=== PATIENT | female | born 1970 | race Caucasian/White ===

== ENCOUNTER → 2016-12-12 | Outpatient (CLI) | payer OTHER | LOC: FIMAGING 13:35 | DX: Z12.31 Encounter for screening mammogram for malignant neoplasm of breast (principal) | CPT/HCPCS: G0202 ==

== ENCOUNTER 2018-01-21 15:59 | Inpatient (IN) | payer OTHER ==
--- NOTE | 2018-01-21 16:12 | EDPHY ---
H & P Time Seen by Provider: 01/21/18 16:10 HPI/ROS: Chief complaint. Difficulty breathing HPI. Patient is 47-year-old female here with shortness of breath. She traveled to [facility] last week on returning on Friday. On Friday she started developed tingling and swelling to her lips in her ears were itching. She then developed some wheezing and hives. She saw her PCP yesterday and was started on prednisone and Claritin and albuterol inhaler as well as Zyrtec. She was not feeling any better and last night developed fever and shortness of breath and so was recheck by the PCP today. Her oximeter at the PCP office was 87%. After a albuterol nebulizer treatment she got up to 91% . Patient has tightness in her throat and feels that is closing. She has an abnormal voice. Height seemed to come and go. She short of breath. 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 She does have a history of pneumonia. There is a family history of autoimmune disease. She has no unusual leg pain or swelling. She has chest pressure. No abdominal pain or vomiting or diarrhea ROS 10 systems were reviewed and negative with the exception of the elements mentioned in the history of present illness Past Medical/Surgical History: Thyroidectomy, hypothyroid, melanoma Social History: , nonsmoker, no alcohol Smoking Status: Never smoked Physical Exam: Alert well-developed female moderate distress vital signs significant for O2 saturation 91% on room air General Appearance: Eyes: Pupils equal and round no pallor or injection. ENT, pharynx without injection. Voice is quite hoarse. However no inspiratory stridor. Swallowing secretions Respiratory: Inspiratory expiratory rhonchi. No retractions Cardiovascular: Regular rate and rhythm. Gastrointestinal: Abdomen is soft and nontender, no masses, bowel sounds normal. Neurological: Awake and alert, sensory and motor exams grossly normal. Skin: Warm and dry, no rashes. Musculoskeletal: Neck is supple nontender. Extremities symmetrical, full range of motion. Psychiatric: Patient is oriented X 3, there is no agitation. Constitutional: Initial Vital Signs Temperature (C) 37.4 C 01/21/18 16:03 Heart Rate 97 01/21/18 16:03 Respiratory Rate 18 01/21/18 16:03 Blood Pressure 148/88 H 01/21/18 16:03 O2 Sat (%) 91 L 01/21/18 16:03 O2 Delivery Mode Nasal Cannula O2 (L/minute) 2 Allergies/Adverse Reactions: aspirin Allergy (Verified 01/21/18 16:03) latex Allergy (Verified 01/21/18 16:02) Home Medications: Medication Instructions Recorded Estrogens,Conjugated [Premarin 1.25 mg PO DAILY 01/21/18 0.625 MG (*)] Levothyroxine [Synthroid 200 mcg 200 mcg PO DAILY06 01/21/18 (*)] Loratadine [Claritin 10 mg] 10 mg PO DAILY 01/21/18 Medical Decision Making - Diagnostics EKG Interpretation: EKG interpreted by me shows normal sinus rhythm. Normal intervals and axis. QRS is normal. There is no significant ST elevation or depression. There is no arrhythmia. Heart rate is 87 Imaging Results: Imaging Impressions Chest X-Ray 01/21/18 16:34 Impression: No pneumonia or pulmonary edema. Soft Tissue Neck X-Ray 01/21/18 16:34 Impression: Cervical soft tissues negative for acute abnormality.. Query mild lymphoid enlargement. Chest/Thorax CTA 01/21/18 17:16 Impression: 1. Negative for pulmonary embolic disease. 2. See above report for additional findings. CT Scan of the Neck, With Contrast Clinical Indications: Neck pain; evaluate for abscess. Technique: During machine power IV injection of 85 mL of Isovue-370, multidetector helical CT imaging was performed from the skull base to the upper thoracic inlet. Dose reduction techniques were utilized. This contrast dose was utilized for evaluation of the neck and chest. Findings: No pathologic adenopathy and no masses are found. No evidence of abscess or neoplasm. There is no evidence for airway compression. The musculature is symmetric. Parapharyngeal soft tissues are unremarkable. The parotid and submandibular glands are normal. Degenerative changes are noted in the cervical spine. Impression: 1. CT of the cervical spine negative for abscess. 2. See above report for additional findings. Results called and discussed with Nam Nathan M.D., on January 21, [address] 01/21/18 17:41 Impression: 1. Negative for pulmonary embolic disease. 2. See above report for additional findings. CT Scan of the Neck, With Contrast Clinical Indications: Neck pain; evaluate for abscess. Technique: During machine power IV injection of 85 mL of Isovue-370, multidetector helical CT imaging was performed from the skull base to the upper thoracic inlet. Dose reduction techniques were utilized. This contrast dose was utilized for evaluation of the neck and chest. Findings: No pathologic adenopathy and no masses are found. No evidence of abscess or neoplasm. There is no evidence for airway compression. The musculature is symmetric. Parapharyngeal soft tissues are unremarkable. The parotid and submandibular glands are normal. Degenerative changes are noted in the cervical spine. Impression: 1. CT of the cervical spine negative for abscess. 2. See above report for additional findings. Results called and discussed with Nam Nathan M.D., on January 21, 2018 at 1809. Chest x-ray interpreted by me shows no obvious pneumonia. Soft tissue neck appears to show normal epiglottis CT chest and CT neck with IV contrast showed no PE and no abscess or airway compromise Procedures: IV normal saline, monitor. Supplemental oxygen Sepsis workup. Lactate is positive. Patient given 30 milliliters/kilogram fluid bolus. D-dimer is elevated. ED Course/Re-evaluation: I discussed laboratory and imaging studies with the patient. I have recommended CT scan patient's chest for elevated D-dimer. She expresses understanding and agreement I consulted and discussed the case with Dr. Arthur for ENT who sees the patient in the ED and scopes the patient I consulted and discussed the case with Dr. Salamanca, hospitalist, who agrees to the admission and sees the patient in the ED Differential Diagnosis: I have considered epiglottitis, allergic reaction, pneumonia, PE, acute coronary syndrome. Patient had elevated lactate and I considered sepsis. Patient has an elevated D-dimer with recent travel. - Data Points Laboratory Results: Laboratory Results 01/21/18 16:55 01/21/18 16:44 01/21/18 01/21/18 01/21/18 16:56 16:55 16:55 WBC RBC Hgb Hct MCV MCH MCHC RDW Plt Count MPV Neut % (Auto) Lymph % (Auto) Winn % (Auto) Eos % (Auto) Baso % (Auto) Nucleat RBC Rel Count Absolute Neuts (auto) Absolute Lymphs (auto) Absolute Monos (auto) Absolute Eos (auto) Absolute Basos (auto) Absolute Nucleated RBC Immature Gran % Immature Gran # ESR PT INR APTT D-Dimer VBG Lactic Acid Sodium Potassium Chloride Carbon Dioxide Anion Gap BUN Creatinine Estimated GFR Glucose Calcium Total Bilirubin Creatine Kinase 87 IU/L IU/L (0-156) POC Troponin I 0.00 ng/mL ng/mL (0.00-0.08) C-Reactive Protein 25.4 mg/L H mg/L (<10.0) NT-Pro-B Natriuret Pep TSH < 0.015 uIU/mL L uIU/mL (0.465-4.680) Rheum Factor Semi-Quant < 8.6 IU/L IU/L (<12.0) SHADIA Screen Pending 01/21/18 01/21/18 01/21/18 16:55 16:44 16:44 WBC RBC Hgb Hct 40.1 % % (38.0-47.0) MCV MCH MCHC RDW Plt Count MPV Neut % (Auto) Lymph % (Auto) Winn % (Auto) Eos % (Auto) Baso % (Auto) Nucleat RBC Rel Count Absolute Neuts (auto) Absolute Lymphs (auto) Absolute Monos (auto) Absolute Eos (auto) Absolute Basos (auto) Absolute Nucleated RBC Immature Gran % Immature Gran # ESR 27 MM/HR H MM/HR (0-20) PT 13.1 SEC SEC (12.0-15.0) INR 0.97 (0.83-1.16) APTT 25.9 SEC SEC (23.0-38.0) D-Dimer 0.71 ug/mLFEU H ug/mLFEU (0.00-0.50) VBG Lactic Acid Sodium 140 mEq/L mEq/L (135-145) Potassium 3.6 mEq/L mEq/L (3.3-5.0) Chloride 106 mEq/L mEq/L (97-110) Carbon Dioxide 23 mEq/l mEq/l (22-31) Anion Gap 11 mEq/L mEq/L (6-14) BUN 21 mg/dL mg/dL (7-23) Creatinine 0.6 mg/dL mg/dL (0.6-1.0) Estimated GFR > 60 Glucose 133 mg/dL H mg/dL (70-100) Calcium 8.6 mg/dL mg/dL (8.5-10.4) Total Bilirubin 0.2 mg/dL mg/dL (0.1-1.4) Creatine Kinase POC Troponin I C-Reactive Protein NT-Pro-B Natriuret Pep 56 pg/mL pg/mL (0-125) TSH Rheum Factor Semi-Quant SHADIA Screen 01/21/18 01/21/18 16:44 16:41 WBC 9.75 10^3/uL H 10^3/uL (3.80-9.50) RBC 4.42 10^6/uL 10^6/uL (4.18-5.33) Hgb 13.8 g/dL g/dL (12.6-16.3) Hct 40.1 % % (38.0-47.0) MCV 90.7 fL fL (81.5-99.8) MCH 31.2 pg pg (27.9-34.1) MCHC 34.4 g/dL g/dL (32.4-36.7) RDW 12.2 % % (11.5-15.2) Plt Count 344 10^3/uL 10^3/uL (150-400) MPV 9.7 fL fL (8.7-11.7) Neut % (Auto) 90.8 % H % (39.3-74.2) Lymph % (Auto) 7.6 % L % (15.0-45.0) Winn % (Auto) 1.0 % L % (4.5-13.0) Eos % (Auto) 0.1 % L % (0.6-7.6) Baso % (Auto) 0.3 % % (0.3-1.7) Nucleat RBC Rel Count 0.0 % % (0.0-0.2) Absolute Neuts (auto) 8.85 10^3/uL H 10^3/uL (1.70-6.50) Absolute Lymphs (auto) 0.74 10^3/uL L 10^3/uL (1.00-3.00) Absolute Monos (auto) 0.10 10^3/uL L 10^3/uL (0.30-0.80) Absolute Eos (auto) 0.01 10^3/uL L 10^3/uL (0.03-0.40) Absolute Basos (auto) 0.03 10^3/uL 10^3/uL (0.02-0.10) Absolute Nucleated RBC 0.00 10^3/uL 10^3/uL (0-0.01) Immature Gran % 0.2 % % (0.0-1.1) Immature Gran # 0.02 10^3/uL 10^3/uL (0.00-0.10) ESR PT INR APTT D-Dimer VBG Lactic Acid 2.3 mmol/L H mmol/L (0.7-2.1) Sodium Potassium Chloride Carbon Dioxide Anion Gap BUN Creatinine Estimated GFR Glucose Calcium Total Bilirubin Creatine Kinase POC Troponin I C-Reactive Protein NT-Pro-B Natriuret Pep TSH Rheum Factor Semi-Quant SHADIA Screen Medications Given: Discontinued Medications Dexamethasone (Decadron Injection) 10 mg IVP EDNOW ONE Stop: 01/21/18 17:43 Last Admin: 01/21/18 18:17 Dose: 10 mg Sodium Chloride (Ns) 1,000 mls @ 0 mls/hr IV EDNOW ONE; Wide Open PRN Reason: Protocol Stop: 01/21/18 16:34 Last Admin: 01/21/18 17:14 Dose: 1,000 mls Sodium Chloride (Ns) 2,500 mls @ 5,000 mls/hr 30 ml/kg infuse over 30 min ( 2500 ml) IV EDNOW ONE PRN Reason: Protocol Stop: 01/21/18 17:42 Last Admin: 01/21/18 17:28 Dose: 2,500 mls Point of Care Test Results: Chemistry 01/21/18 16:56 POC Troponin I 0.00 ng/mL ng/mL (0.00-0.08) Departure - Departure Disposition: [facility] Inpatient Acute Clinical Impression: Allergic reaction Qualifiers: Encounter type: initial encounter Qualified Code(s): T78.40XA - Allergy, unspecified, initial encounter Condition: Fair
[2018-01-21] MEDS ORDERED: NS 1,000 ML IV ONE (16:33)
[2018-01-21 17:02] LABS: PLATELET COUNT 344 10^3/uL (150-400)
[2018-01-21 17:09] LABS: INR 0.97 (0.83-1.16); PROTIME(PATIENT) 13.1 SEC (12.0-15.0)
[2018-01-21] MEDS ORDERED: NS 2,500 ML IV ONE (17:13)
[2018-01-21] MEDS ORDERED: IOPAMIDOL (ISOVUE 370) 100 ML BTL IV ONE ×2 (17:19)
[2018-01-21] MEDS ORDERED: DEXAMETHASONE 10 MG/ML VIAL IVP ONE (17:42)
[2018-01-21] MEDS ORDERED: ACETAMINOPHEN 325 MG TAB PO PRN (18:07)
[2018-01-21] MEDS ORDERED: ONDANSETRON DISINTEGRATING 4 MG TAB PO PRN (18:07)
[2018-01-21] MEDS ORDERED: ONDANSETRON 4 MG/2 ML VIAL IVP PRN (18:07)
[2018-01-21] MEDS ORDERED: DEXAMETHASONE 4 MG/ML VIAL ONE (18:14)
[2018-01-21 20:28] LABS: CREATINE KINASE 87 IU/L (0-156)
--- NOTE | 2018-01-21 20:48 | GHP ---
DATE OF ADMISSION: 01/21/2018 CHIEF COMPLAINT: Difficulty breathing. HISTORY OF PRESENT ILLNESS: This is a 47-year-old female, who presents with about 2 days of difficul ty breathing. Recent history notable for having traveled to [place] recently. She went to see he r daughter. She took her daughter shopping in [place] on Friday. As she was driving back, noti marce that she had some tingling in her lips as well as some itching on her neck and itching in her ear s. This was associated with some lip swelling. She also developed a hive-like rash over her face as well as swelling in her neck and face. She went to see her PCP, who started her on Zyrtec, predniso ne, and an inhaler. Her symptoms got worse last night, also associated with some heaviness in her ch est, as well as difficulty breathing. Her voice also changed and she feels as though she has to stra in to produce sound. In the ED, she underwent a flexible laryngoscopy, which showed no airway obstru ction, but it did show that her vocal cords do not completely closed. Dr. Hall did not feel as th ough this were a new finding. She received IV Decadron in the ED and feels as though her swelling is improving. She has history of tongue swelling due to aspirin when she was younger. She has multipl e autoimmune disorders in her family. She also has a diagnosis of malignant melanoma. She has had a few resected, but has never undergone systemic chemotherapy. She does not have any joint complaints , although she has had spinal surgery. She has no myalgias. She has no known kidney problems. PAST MEDICAL/SURGICAL HISTORY: 1. Malignant melanoma. 2. Hypothyroid. 3. Knee surgery. 4. Spinal surgery. 5. Hysterectomy. MEDICATIONS: Please see medication reconciliation. ALLERGIES: Aspirin and latex. SOCIAL HISTORY: She is and accompanied by her . FAMILY HISTORY: Her daughter has the gene for malignant melanoma. She has multiple autoimmune disea ses including lupus, rheumatoid arthritis, and Crohn disease in her family. REVIEW OF SYSTEMS: 10-point review of systems is conducted and is negative except per HPI. PHYSICAL EXAM: VITAL SIGNS: Blood pressure 150/95, heart rate 82, respiration rate 20, satting 97% on room air. Temperature is 37. GENERAL: The patient is a pleasant female who is resting comfortab ly. No acute distress. HEENT: Shows her to have no hives or edema in her face or neck. CARDIOVASC ULAR: Shows regular rate and rhythm. No murmurs, rubs, or gallops. PULMONARY: Lungs clear to ausc ultation bilaterally. ABDOMEN: Soft, nontender, nondistended. SKIN: Shows no rash. : No Haley . NEUROLOGIC: Shows her to be alert and oriented x3. She is moving all extremities. PSYCHIATRIC: Shows normal mood and affect. LABS: White count is 9.7. D-dimer is 0.7. Lactate 2.3. Basic metabolic panel is normal. Glucose slightly elevated at 133. BNP is normal. Troponin is negative. DATA: 1. Discussed with Dr. Nathan. Will admit to med/surg. 2. I reviewed her chest, thorax, and neck CT scans. These are unremarkable. 3. I reviewed her EKG. This shows sinus rhythm. There are no acute ischemic changes. IMPRESSION AND PLAN: 1. Suspected allergic reaction: Other potential diagnoses include paraneoplastic syndrome from mecca gnant melanoma. Does not seem consistent with dermatomyositis. She has improved with steroids. We will send off basic inflammatory workup. Continue steroids. Place her on pulse ox. 2. Vocal cord non closure: Dr. Hall did not feel as though this for new finding; however, it is suspicious. It may account for her voice changes and difficulty phonating. She will need to follow up with ENT. Would be curious to see if her voice changes improve with steroids. 3. Hypothyroid: Check TSH. /[id number]/MODL
[2018-01-21] MEDS: diphenhydrAMINE 25 MG CAP PO PRN (23:20)
[2018-01-21] MEDS: DEXAMETHASONE 4 MG/ML VIAL IVP SCH (23:20)
--- NOTE | 2018-01-21 23:43 | CPEKG ---
Test Reason : OPEN Blood Pressure : / mmHG Vent. Rate : 087 BPM Atrial Rate : 088 BPM P-R Int : 157 ms QRS Dur : 089 ms QT Int : 395 ms P-R-T Axes : 038 012 023 degrees QTc Int : 476 ms Sinus rhythm Confirmed by Nam Nathan ([id number]) on 01/21/2018 11:42:48 PM Referred By: Confirmed By:Nam Nathan
[2018-01-22 05:31] LABS: PLATELET COUNT 326 10^3/uL (150-400)
[2018-01-22] MEDS: DEXAMETHASONE 4 MG/ML VIAL IVP SCH ×3 (05:33→18:21)
[2018-01-22] MEDS: LEVOTHYROXINE 200 MCG TAB PO SCH (05:33)
[2018-01-22] MEDS: diphenhydrAMINE 25 MG CAP PO PRN (05:36)
--- NOTE | 2018-01-22 06:34 | GCON ---
DATE OF CONSULTATION: 01/21/2018 CHIEF COMPLAINT: Shortness of breath and voice dysfunction. HISTORY OF PRESENT ILLNESS: This is a pleasant 47-year-old previously healthy woman who states that a few days ago she started having a little bit of tingling and swelling of the lips as well as with some hives. She was seen by her primary care doctor and it was felt to be an allergic reaction, so she was started on some prednisone as well as an albuterol inhaler and multiple allergy medications. She states that this did not really improve anything and was having some wheezing, so then she went back to her PCP this afternoon after developing a slight fever last night as well as some more shortness of breath. Her pulse ox in the PCPs office was 87% and after albuterol nebulizer, she got up to about 91%. Around this time, she started complaining of some tightness in her throat and feeling that it was closing. She also started having some dysphonia with a very high pitched voice and feeling like she has to really push to get the voice out. She does complain of shortness of breath. She denies any previous neck trauma. No previous intubations. No symptoms related to possible upper respiratory infection or pneumonia. She denies any sore throat really, just states that it is uncomfortable and just feels a little bit more difficult to swallow and like she has a globus sensation. She denied any reflux sensations. No postnasal drip or otherwise any symptoms of an infection besides the fever. She was seen in the ER and secondary to the symptoms, I was called for evaluation. She did have a CT scan of her neck as well as chest, which were both normal. She has some labs that were done showing an increase in her lactic acid as well as a slight increase in her D-dimer. So far, her workup has been negative otherwise. REVIEW OF SYSTEMS: Otherwise negative besides the complaints above. PHYSICAL EXAM: GENERAL: She is awake, alert, in no apparent distress. She does have a very high pitched breathy voice, it sounds like she is straining. She is on 2 L of oxygen nasal cannula and her sats are 97%. HEENT: Ears are clear with no middle ear effusion. Nose shows no significant nasal discharge or inflammation. Oral cavity and oropharynx shows a tongue that is mobile and midline. Palate elevates symmetrically. Tonsils are 1+. She has no significant swelling of the posterior pharynx. NECK: Shows no significant swelling, crepitus, or lymphadenopathy. There is no tenderness to palpation. She does have a previous scar from a thyroidectomy. LUNGS: On exam and auscultation of her lungs, she had may have some mild rhonchi. She has no significant inspiratory or expiratory stridor. 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 4% lidocaine and Afrin were sprayed into the nares on both sides. After a couple minutes and sufficient time to act, the scope was placed in the right nasal cavity and passed through the right naris. There was no significant polyps, purulence, or edema of the nasal cavity or nasopharynx. Tongue shows some large lingual tonsils, but these are symmetric and no masses or lesions. Larynx shows no significant edema or swelling. Bilateral vocal cords are mobile, although she does have fairly significant glottic gap on adduction. She is able to abduct without difficulty and it does not appear that she has vocal fold dysfunction. She has no significant edema of the surrounding areas and no pooling of secretions. The scope was removed without difficulty. ASSESSMENT AND PLAN: This is a patient who had a fairly acute onset of what seemed like allergy symptoms, although today it seemed to get worse with more shortness of breath, a slight fever, and some dysphonia. Her workup is somewhat complicated at this point in that nothing overt has been found, but she has had some abnormalities in the white count, lactic acid level and D- dimer. On her scope, she does have a glottic gap causing her dysphonia. This does not look like vocal fold dysfunction because the vocal folds move in an appropriate manner, and I discussed with her that I am not quite sure why she has this or why it came on so suddenly, but she has not had any recent trauma or any recent intubations. 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 I definitely do not see any swelling or concern for airway compromise. She is going to get admitted for observation by the hospitalist team and continue workup. Please do not hesitate to call if she has any further concerns or worsening, but at this point , her CT scan looks clear and her scope looks clear from the standpoint of any swelling. Thanks for the consultation. Do not hesitate to call if you need anything else. /[id number]/MODL MTDD
[2018-01-22] MEDS ORDERED: CETIRIZINE 10 MG TAB PO SCH (09:00)
--- NOTE | 2018-01-22 10:42 | HOSPPROG ---
Hospitalist Progress Note Assessment/Plan: 47 yo F w apparent allergic reaction to unknown stimulus allergic reaction w air hunger: ED laryngoscopy w patent airways but sx noted continue dex add scheduled benadryl dyspnea w AHRF: no PE or consolidation on ches t imaging (reviewed/interp by me) may be hyperinflated by exam continue steroids schedule albuterol follow suppressed tsh: has had thyroidectomy dose is too high melanoma: no adenopathy or masses on imaging dispo: change to inpatient given ongoing AHRF, sx Subjective: still w tightness in ches. voive remains high pitched. case d/w dr medrano Objective: Vital Signs Temp Pulse Resp BP Pulse Ox 36.8 C 74 16 142/86 H 96 01/22/18 08:00 01/22/18 08:00 01/22/18 08:00 01/22/18 08:00 01/22/18 08:00 Laboratory Results 01/22/18 05:06 01/22/18 05:06 01/21/18 01/22/18 01/23/18 05:59 05:59 05:59 Intake Total 3170 Balance 3170 PT 13.1 SEC (12.0-15.0) 01/21/18 16:44 INR 0.97 (0.83-1.16) 01/21/18 16:44 - Physical Exam Constitutional: no apparent distress, appears nourished Eyes: PERRL, anicteric sclera Ears, Nose, Mouth, Throat: moist mucous membranes, hearing normal, other (no oropharyngeal swelling) Cardiovascular: regular rate and rhythym, no murmur, rub, or gallop, No tachycardia Respiratory: no respiratory distress, other (prolonged expiratopry phase) Gastrointestinal: normoactive bowel sounds, soft, non-tender abdomen Genitourinary: no bladder fullness, No wren in urethra Skin: other (a bit red but no rash. fair complexion) Musculoskeletal: full muscle strength, no muscle tenderness Neurologic: AAOx3 ICD10 Worksheet Patient Problems: Problems Problem Status Onset Allergic reaction Acute
[2018-01-22] MEDS: ALBUTEROL 3 ML DEYVIAL IH SCH ×4 (11:50→22:18)
--- NOTE | 2018-01-22 11:53 | ASMTCMCOM ---
CM Note CM Note Notes: Pt admitted for difficulty breathing, may be from allergic reaction. She lives at home with her and is otherwise indepedent. Anticipate she will dc home w/support of family when medically stable. CM available for any changes. DC Plan: Independent Date Signed: 01/22/2018 11:53 AM Electronically Signed By:Yolanda Palacios RN
--- NOTE | 2018-01-22 13:28 | PDMN ---
Medical Necessity Medical necessity: Change to inpt as of 01/22/18 @ 10:42. Pt meets inpt criteria per MD order and Pulmonary Disease GRG, Acute respiratory failure with hypercapnia. Ongoing symptoms of chest tightness, dyspnea with AHRF, initially admitted w/allergic reaction, cont to require IV steroids and IV Benedryl, supplemental O2, anticipate>2MN for ongoing management of above.
[2018-01-23] MEDS: DEXAMETHASONE 4 MG/ML VIAL IVP SCH ×4 (00:18→17:37)
[2018-01-23] MEDS: ALBUTEROL 3 ML DEYVIAL IH SCH ×6 (02:11→20:56)
[2018-01-23] MEDS: LEVOTHYROXINE 200 MCG TAB PO SCH (05:02)
[2018-01-23] MEDS ORDERED: DIAZEPAM 5 MG TAB PO ONE (14:32)
--- NOTE | 2018-01-23 14:35 | HOSPPROG ---
Hospitalist Progress Note Assessment/Plan: 47 yo F w apparent allergic reaction to unknown stimulus allergic reaction w air hunger: ED laryngoscopy w patent airways but sx noted continue dex add scheduled benadryl dyspnea w AHRF: no PE or consolidation on ches t imaging (reviewed/interp by me) may be hyperinflated by exam continue steroids schedule albuterol follow dysphonia: caused by failure of vocal cords to adduct this can happen in setting of muscle stress/tension trial of muscle relaxants suppressed tsh: has had thyroidectomy dose is too high melanoma: no adenopathy or masses on imaging dispo: change to inpatient given ongoing AHRF, sx Subjective: having "flares" of erythematous rash. voice still harsh. case d.w dr medrano Objective: Vital Signs Temp Pulse Resp BP Pulse Ox 36.9 C 92 18 130/73 H 97 01/23/18 11:17 01/23/18 14:01 01/23/18 14:01 01/23/18 11:17 01/23/18 14:01 01/22/18 01/23/18 01/24/18 05:59 05:59 05:59 Intake Total 500 Balance 500 PT 13.1 SEC (12.0-15.0) 01/21/18 16:44 INR 0.97 (0.83-1.16) 01/21/18 16:44 - Physical Exam Constitutional: no apparent distress, appears nourished Eyes: PERRL, anicteric sclera Ears, Nose, Mouth, Throat: other (o/p clear. hoarse voice) Cardiovascular: regular rate and rhythym, no murmur, rub, or gallop Respiratory: no respiratory distress, no rales or rhonchi Gastrointestinal: normoactive bowel sounds, soft, non-tender abdomen Genitourinary: no bladder fullness, No wren in urethra Skin: warm, normal color Musculoskeletal: full muscle strength, no muscle tenderness Neurologic: AAOx3 ICD10 Worksheet Patient Problems: Problems Problem Status Onset Allergic reaction Acute
[2018-01-24] MEDS: DEXAMETHASONE 4 MG/ML VIAL IVP SCH ×3 (00:27→12:39)
[2018-01-24] MEDS: ALBUTEROL 3 ML DEYVIAL IH SCH ×4 (00:40→14:55)
[2018-01-24] MEDS: LEVOTHYROXINE 200 MCG TAB PO SCH (06:05)
[2018-01-24] MEDS ORDERED: LEVOTHYROXINE 175 MCG TAB PO SCH (17:06)
--- NOTE | 2018-01-24 17:08 | HOSPPROG ---
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 valium helped breathing Objective: Vital Signs Temp Pulse Resp BP Pulse Ox 36.6 C 88 14 137/86 H 93 01/24/18 16:00 01/24/18 16:00 01/24/18 16:00 01/24/18 16:00 01/24/18 16:00 01/23/18 01/24/18 01/25/18 05:59 05:59 05:59 Intake Total 500 10 Balance 500 10 PT 13.1 SEC (12.0-15.0) 01/21/18 16:44 INR 0.97 (0.83-1.16) 01/21/18 16:44 - Physical Exam Constitutional: no apparent distress, appears nourished Eyes: PERRL, anicteric sclera Ears, Nose, Mouth, Throat: moist mucous membranes, hearing normal Cardiovascular: regular rate and rhythym, no murmur, rub, or gallop Respiratory: no respiratory distress, no rales or rhonchi, clear to auscultation , No reduced air movement, No expiratory wheeze, No respiratory distress, No rhonchi Gastrointestinal: normoactive bowel sounds, soft, non-tender abdomen Genitourinary: no bladder fullness, No wren in urethra Skin: warm, normal color, No mottled Musculoskeletal: full muscle strength Neurologic: AAOx3 ICD10 Worksheet Patient Problems: Problems Problem Status Onset Allergic reaction Acute
[2018-01-24] MEDS: BACLOFEN 10 MG TAB PO SCH ×2 (17:56→21:38)
[2018-01-24] MEDS: ALBUTEROL 3 ML DEYVIAL IH PRN (23:46)
[2018-01-25] MEDS: ALBUTEROL 3 ML DEYVIAL IH PRN (07:32)
[2018-01-25] MEDS: BACLOFEN 10 MG TAB PO SCH (08:56)
[2018-01-25] MEDS ORDERED: predniSONE 20 MG TAB PO SCH (09:00)
[2018-01-25 11:55] VITALS: BP 118/68
--- NOTE | 2018-01-25 11:55 | HOSPPROG ---
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 this can happen in setting of muscle stress/tension trial of muscle relaxants suppressed tsh: has had thyroidectomy dose is too high decrease to 175 melanoma: no adenopathy or masses on imaging dispo: home today > 30 minutes Subjective: sx improved a baclofen, as did voice Objective: Vital Signs Temp Pulse Resp BP Pulse Ox 36.9 C 87 17 133/94 H 95 01/25/18 08:00 01/25/18 08:00 01/25/18 08:00 01/25/18 08:00 01/25/18 08:00 01/24/18 01/25/18 01/26/18 05:59 05:59 05:59 Intake Total 10 240 Balance 10 240 PT 13.1 SEC (12.0-15.0) 01/21/18 16:44 INR 0.97 (0.83-1.16) 01/21/18 16:44 - Physical Exam Constitutional: no apparent distress, appears nourished Eyes: PERRL, anicteric sclera Ears, Nose, Mouth, Throat: moist mucous membranes, hearing normal Cardiovascular: regular rate and rhythym, no murmur, rub, or gallop Respiratory: no respiratory distress, no rales or rhonchi Gastrointestinal: normoactive bowel sounds, soft, non-tender abdomen Genitourinary: no bladder fullness, No wren in urethra Skin: warm, normal color Musculoskeletal: full muscle strength Neurologic: AAOx3 ICD10 Worksheet Patient Problems: Problems Problem Status Onset Allergic reaction Acute
--- NOTE | 2018-01-25 12:05 | PDIAF ---
- Diagnosis Diagnosis: glottic muscle tension dysphonia Code Status: Full Code - Medication Management Discharge Medications: Medications to Continue on Transfer Estrogens,Conjugated [Premarin 0.625 MG (*)] 1.25 mg PO DAILY 01/21/18 [Last Taken Unknown] Loratadine [Claritin 10 mg] 10 mg PO DAILY 01/21/18 [Last Taken 01/21/18] Albuterol Hfa Anes Only [Proair Hfa Icu (*)] 1 mdi IH Q4 PRN #1 mdi 01/25/18 [ Last Taken Unknown] Baclofen [Baclofen 10 mg (*)] 10 mg PO TID PRN #6 tab 01/25/18 [Last Taken Unknown] Levothyroxine [Synthroid 175 mcg (*)] 175 mcg PO DAILY06 tab 01/25/18 [Last Taken Unknown] predniSONE 40 mg PO DAILY tablet 01/25/18 [Last Taken Unknown] Discharge Medications: Refer to the Discharge Home Medication list for PRN reason. - Orders Services needed: Speech Language Pathologist (arrange friday 01/26) - Follow Up Care Current Providers and Referrals: IRINA MATOS [Primary Care Provider] - As per Instructions
--- NOTE | 2018-01-25 12:19 | SOAPPROG ---
MISAEL Progress Note Assessment/Plan: Assessment: Pt improved overall. Her voice is still slightly hoarse and breathy. 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 D/w her pathophysiology of this and why it causes these sxs. I'll plan on seeing her as an outpatient in a month to rescope her, unless she has further issues sooner, and i'll see her before then. Plan: 01/25/18 12:17 Subjective: Pt doing better. SLT saw her yesterday though really just eval swallowing, not speech. She said could do on an outpatient basis. Pt is improved with baclofen and ativan. Says when this wears off though will get worse. Objective: AFVSS RA voice slightly high pitched and hoarse, still breathy neck not overly tight. Vital Signs Temp Pulse Resp BP Pulse Ox 36.8 C 79 24 H 118/68 90 L 01/25/18 11:53 01/25/18 11:53 01/25/18 11:53 01/25/18 11:53 01/25/18 11:53 01/24/18 01/25/18 01/26/18 05:59 05:59 05:59 Intake Total 10 240 Balance 10 240 PT 13.1 SEC (12.0-15.0) 01/21/18 16:44 INR 0.97 (0.83-1.16) 01/21/18 16:44 ICD10 Worksheet Patient Problems: Problems Problem Status Onset Allergic reaction Acute
--- NOTE | 2018-01-25 13:53 | ASDISCHSUM ---
Discharge Information Plan Status:Home with No Needs Medically Cleared to Leave:01/25/2018 Discharge Date:01/25/2018 01:35 PM CM D/C Disposition:Home, Routine, Self-Care ADT D/C Disposition:Home, Routine, Self-Care Projected Discharge Date:01/25/2018 01:35 PM Transportation at D/C: Discharge Delay Reason: Follow-Up Date:01/25/2018 01:35 PM Discharge Slot: Final Diagnosis: Placement Information Patient Contact Information Contact Name:LAKEISHA Relationship: Address:[address] [place] [address] [place] Work Phone: Jayy:MAI Lees Phone: State/Zip Code:[place] [address] Email: Financial Information Financial Class:[employer] Primary Plan Desc:[facility] Primary Plan Number:[id number] Secondary Plan Desc: Secondary Plan Number: Assessment Information LACE LACE Length of stay for Answers: 3 days current admission Acuity / Level of Answers: Yes Care: Did the patient have an inpatient admission? Comorbidities - select Answers: Other Notes: Thyroidectomy; Hypothyr oid all that apply # of Emergency department Answers: 1-2 visits in the last 6 months Score: 8 Date Signed: 01/25/2018 01:51 PM Electronically Signed By:Abbi Del Angel RN [facility] CM Progress Note CM Note CM Note Notes: Pt admitted for difficulty breathing, may be from allergic reaction. She lives at home with her and is otherwise indepedent. Anticipate she will dc home w/support of family when medically stable. CM available for any changes. DC Plan: Independent Date Signed: 01/22/2018 11:53 AM Electronically Signed By:Yolanda Palacios RN Case Management Discharge Plan Note Case Management Discharge Discharge Order Complete? Answers: Yes Patient to Obtain Answers: Independently Medications Transportation Arranged Answers: Family/Friends Discharge Comments Notes: 01/25/2018 Case Management Note Provided phone number for outpatient speech therapy clinic. No further case management d/c needs identified. Pt discharged home with follow up as directed. Date Signed: 01/25/2018 01:52 PM Electronically Signed By:Abbi Del Angel RN Intervention Information
--- NOTE | 2018-01-27 17:17 | GDS ---
DISCHARGE DIAGNOSES: 1. Allergic reaction, not anaphylaxis. 2. Muscle tension dysphonia. 3. Muscle tension. HOSPITAL COURSE: Please see admission history and physical by Dr. Stan Salamanca. The patient presente d with hoarse voice, allergic reaction-type symptoms such as flushing, red skin. She had a soft tiss ue x-ray and CT of her neck showing no airway narrowing. She underwent fiberoptic imaging by Dr. Kalyan Hall, who saw that her vocal cords did not adduct entirely. This is an entity known as muscle tension dysphonia. The patient was treated with high-dose steroids out of a concern for anaphylaxis , which she really never had. Also, a rheumatologic workup was undertaken which was relatively unrem arkable. Her CRP and ESR were modestly elevated. She had an SHADIA and rheumatoid factor that were neg ative. She does have a family history of rheumatologic illness. She had no rash, no joint swelling, no eosinophilia, and no anemia suggestive of a chronic inflammatory process. Regarding her allergic reaction, no clear trigger was identified in her history. The steroids were tapered. She kept having these episodes of flushing which I observed and were rela tively unremarkable. She felt short of breath, but was able to talk, and was neither hypoxic nor whe ezing and she was moving good air. Ultimately, a trial of baclofen led to an improvement in her symp toms. She is discharged home with baclofen and rapid steroid taper and an albuterol MDI, was advised to follow up with an planning director as an outpatient. Speech therapy was also provided. /[id number]/MODL
== END 2018-01-25 13:35 | disposition home or self-care (01) | DRG 916 ==
LOC: F3E 20:04 → OBSVTOIN 01-22 10:42
PROVIDERS: ADMIT Student in an Organized Health Care Education/Training Program; ATTEND Student in an Organized Health Care Education/Training Program
DX: T78.40XA Allergy, unspecified, initial encounter (principal); R49.0 Dysphonia; Z87.01 Personal history of pneumonia (recurrent); E03.9 Hypothyroidism, unspecified; Z85.820 Personal history of malignant melanoma of skin
CPT/HCPCS: 84484-PO; G0378; J1100; J1200; J7512; J7613; Q9967

== ENCOUNTER → 2018-02-04 | Outpatient (CLI) | payer OTHER | LOC: FIMAGING 08:56 | PROVIDERS: ATTEND Physician Assistant Medical | DX: Z00.01 Encounter for general adult medical examination with abnormal findings (principal); N64.52 Nipple discharge; E89.0 Postprocedural hypothyroidism; Z90.5 Acquired absence of kidney; E28.319 Asymptomatic premature menopause; Z79.52 Long term (current) use of systemic steroids ==

== ENCOUNTER 2018-02-08 13:47 | Emergency (ER) | payer OTHER ==
[2018-02-08] MEDS ORDERED: NS 1,000 ML IV ONE (14:25)
[2018-02-08] MEDS ORDERED: ONDANSETRON 4 MG/2 ML VIAL IVP ONE (14:25)
--- NOTE | 2018-02-08 14:29 | CPEKG ---
Test Reason : OPEN Blood Pressure : / mmHG Vent. Rate : 090 BPM Atrial Rate : 090 BPM P-R Int : 147 ms QRS Dur : 077 ms QT Int : 369 ms P-R-T Axes : 048 023 025 degrees QTc Int : 452 ms Sinus rhythm Confirmed by Syed Jorge ([id number]) on 02/08/2018 2:28:24 PM Referred By: Confirmed By:Syed Jorge
--- NOTE | 2018-02-08 14:30 | EDPHY ---
H & P Time Seen by Provider: 02/08/18 13:55 HPI/ROS: CHIEF COMPLAINT: Abdominal pain HISTORY OF PRESENT ILLNESS: The patient was admitted in the end of December for upper chest pains and vocal cord dysfunction. Afterwards she has been doing well and in fact was out for about 12 hr yesterday with her mother. She woke up at 12:30 a.m. Today with epigastric pain radiating up into her chest. She took a baclofen but vomited and the pain has persisted. Is it is in her lower sternum and upper stomach centrally. Worse with oral intake today associated with nausea but no diarrhea. No hematemesis or coffee- ground emesis. No radiation to shoulder or arm or neck. Not associated with shortness of breath. No injury or trauma. No change in voice. REVIEW OF SYSTEMS: Eye: no change in vision ENT: no sore throat Cardiac: HPI Pulmonary: HPI, has had a little bit of a cough since her hospitalization this is unchanged. Not short of breath. Abdomen: HPI Musculoskeletal: no back pain Skin: no rash Neuro: no headache Constitutional: no fever : no urinary symptoms A comprehensive 10 point review of systems is otherwise negative aside from elements mentioned in the history of present illness. PAST MEDICAL HISTORY: Previous spine surgery, hysterectomy, appendectomy, the thyroidectomy, melanoma, knee surgery, spinal surgery. Social history: General Appearance: Alert and conversant, cooperative. Eyes: No scleral icterus. ENT, Mouth: Normal mucous membranes. No angioedema. Respiratory: Normal respiratory effort, breath sounds equal, lungs are clear to auscultation. Speaks in full sentences. Has a slightly higher pitched voice because of her vocal cord problem, that is not changed since her discharge. No stridor or drooling. Cardiovascular: Regular rate and rhythm. Gastrointestinal: Epigastric and right upper quadrant tenderness. No peritoneal signs. Neurological: Alert, face symmetric, normal motor and sensory in extremities. Skin: Warm and dry, no rashes. Musculoskeletal: No peripheral edema. Psychiatric: Not agitated. Emergency Department course/MDM: Zofran 4 mg IV, normal saline 1 L IV. GI cocktail, CBC chemistry LFT and lipase. Patient re-examined and labs discussed. She does feel a lot better. I think GERD or peptic ulcer disease is much more likely than ACS or pneumonia or pulmonary embolism or pancreatitis or hepatitis. I think common duct stone is unlikely. She is on prednisone for her vocal cord dysfunction and does drink caffeine. I would like to try and avoid adding an additional medications and the patient is in agreement. We discussed decreasing caffeine and using over- the-counter antacids; zofran prescription. Smoking Status: Never smoked Constitutional: Initial Vital Signs Temperature (C) 37.2 C 02/08/18 13:49 Heart Rate 102 H 02/08/18 13:49 Respiratory Rate 25 H 02/08/18 13:49 Blood Pressure 117/97 H 02/08/18 13:49 O2 Sat (%) 94 02/08/18 13:49 O2 Delivery Mode Room Air Allergies/Adverse Reactions: adhesive tape Allergy (Verified 02/08/18 13:54) aspirin Allergy (Verified 01/21/18 16:03) latex Allergy (Verified 01/21/18 16:02) Home Medications: Medication Instructions Recorded Estrogens,Conjugated [Premarin 1.25 mg PO DAILY 01/21/18 0.625 MG (*)] Loratadine [Claritin 10 mg] 10 mg PO DAILY 01/21/18 Albuterol Hfa Anes Only [Proair 1 mdi IH Q4 PRN #1 mdi 01/25/18 Hfa Icu (*)] Baclofen [Baclofen 10 mg (*)] 10 mg PO TID PRN #6 tab 01/25/18 Levothyroxine [Synthroid 175 mcg 175 mcg PO DAILY06 tab 01/25/18 (*)] predniSONE 40 mg PO DAILY tablet 01/25/18 Ondansetron Odt [Zofran Odt] 4 mg PO Q4PRN #10 tab 02/08/18 Medical Decision Making - Diagnostics EKG Interpretation: 12-lead EKG interpreted by me; official reading is in computer system. My interpretation is sinus rhythm rate 90 no ischemic changes Differential Diagnosis: Differential considered including but not limited to common duct stone, hepatitis, pancreatitis, reflux disease, peptic ulcer or perforation. - Data Points Laboratory Results: Laboratory Results 02/08/18 14:07 02/08/18 14:07 02/08/18 02/08/18 14:07 14:07 WBC 15.29 10^3/uL H 10^3/uL (3.80-9.50) RBC 4.85 10^6/uL 10^6/uL (4.18-5.33) Hgb 15.2 g/dL g/dL (12.6-16.3) Hct 44.4 % % (38.0-47.0) MCV 91.5 fL fL (81.5-99.8) MCH 31.3 pg pg (27.9-34.1) MCHC 34.2 g/dL g/dL (32.4-36.7) RDW 12.3 % % (11.5-15.2) Plt Count 314 10^3/uL 10^3/uL (150-400) MPV 9.2 fL fL (8.7-11.7) Neut % (Auto) 83.3 % H % (39.3-74.2) Lymph % (Auto) 8.5 % L % (15.0-45.0) [place] % (Auto) 6.7 % % (4.5-13.0) Eos % (Auto) 1.0 % % (0.6-7.6) Baso % (Auto) 0.2 % L % (0.3-1.7) Nucleat RBC Rel Count 0.0 % % (0.0-0.2) Absolute Neuts (auto) 12.72 10^3/uL H 10^3/uL (1.70-6.50) Absolute Lymphs (auto) 1.30 10^3/uL 10^3/uL (1.00-3.00) Absolute Monos (auto) 1.03 10^3/uL H 10^3/uL (0.30-0.80) Absolute Eos (auto) 0.16 10^3/uL 10^3/uL (0.03-0.40) Absolute Basos (auto) 0.03 10^3/uL 10^3/uL (0.02-0.10) Absolute Nucleated RBC 0.00 10^3/uL 10^3/uL (0-0.01) Immature Gran % 0.3 % % (0.0-1.1) Immature Gran # 0.05 10^3/uL 10^3/uL (0.00-0.10) Sodium 140 mEq/L mEq/L (135-145) Potassium 3.7 mEq/L mEq/L (3.3-5.0) Chloride 105 mEq/L mEq/L (97-110) Carbon Dioxide 24 mEq/l mEq/l (22-31) Anion Gap 11 mEq/L mEq/L (6-14) BUN 25 mg/dL H mg/dL (7-23) Creatinine 0.6 mg/dL mg/dL (0.6-1.0) Estimated GFR > 60 Glucose 99 mg/dL mg/dL (70-100) Calcium 8.6 mg/dL mg/dL (8.5-10.4) Total Bilirubin 0.8 mg/dL mg/dL (0.1-1.4) Conjugated Bilirubin 0.3 mg/dL mg/dL (0.0-0.5) Unconjugated Bilirubin 0.5 mg/dL mg/dL (0.0-1.1) AST 18 IU/L IU/L (14-46) ALT 34 IU/L IU/L (9-52) Alkaline Phosphatase 59 IU/L IU/L (38-126) Total Protein 7.3 g/dL g/dL (6.3-8.2) Albumin 4.3 g/dL g/dL (3.5-5.0) Lipase 32 IU/L IU/L (23-300) Medications Given: Discontinued Medications Al Hydroxide/Mg Hydroxide (Maalox Susp) 30 ml PO ONCE ONE Stop: 02/08/18 14:33 Last Admin: 02/08/18 14:56 Dose: 30 ml Hyoscyamine Sulfate (Levsin, Hyomax-Sl) 0.25 mg PO ONCE ONE Stop: 02/08/18 14:33 Last Admin: 02/08/18 14:55 Dose: 0.25 mg Sodium Chloride (Ns) 1,000 mls @ 0 mls/hr IV EDNOW ONE; Wide Open PRN Reason: Protocol Stop: 02/08/18 14:26 Last Admin: 02/08/18 14:55 Dose: 1,000 mls Lidocaine (Lidocaine 2% Viscous) 15 ml PO ONCE ONE Stop: 02/08/18 14:33 Last Admin: 02/08/18 14:56 Dose: 15 ml Ondansetron HCl (Zofran) 4 mg IVP EDNOW ONE Stop: 02/08/18 14:26 Last Admin: 02/08/18 14:56 Dose: 4 mg Departure - Departure Disposition: Home, Routine, Self-Care Clinical Impression: Abdominal pain Qualifiers: Abdominal location: epigastric Qualified Code(s): R10.13 - Epigastric pain Condition: Good Instructions: Acute Abdominal Pain (ED) Additional Instructions: Decrease caffeine intake. Oral Maalox or Mylanta about 30 min before meals. Return if you get worsening or severe symptoms. Referrals: IRINA MATOS [Primary Care Provider] - As per Instructions Prescriptions: Ondansetron Odt [Zofran Odt] 4 mg PO Q4PRN #10 tab
[2018-02-08] MEDS ORDERED: HYOSCYAMINE SULFATE 0.125 MG TAB PO ONE (14:32)
[2018-02-08] MEDS ORDERED: LIDOCAINE 2% VISCOUS 15 ML UDCUP PO ONE (14:32)
[2018-02-08] MEDS ORDERED: MAG HYDROX/AL HYDROX/SIMETH 30 ML UDCUP PO ONE (14:32)
[2018-02-08 14:37] LABS: PLATELET COUNT 314 10^3/uL (150-400)
[2018-02-08 16:30] VITALS: BP 120/82
== END 2018-02-08 16:34 | disposition home or self-care (01) ==
DX: R10.13 Epigastric pain (principal); E86.9 Volume depletion, unspecified
CPT/HCPCS: 96374; J2405

== ENCOUNTER → 2018-03-11 | Outpatient (CLI) | payer OTHER | PROVIDERS: ATTEND Otolaryngology | DX: K21.9 Gastro-esophageal reflux disease without esophagitis (principal) | CPT/HCPCS: 92611-GN ==